=== PATIENT | female | born 1985 | race American Indian/Alaskan Native ===

== ENCOUNTER 2018-03-20 19:55 | Emergency (ER) | payer MEDICARE ==
[2018-03-20 20:18] VITALS: BP 180/111
[2018-03-20 20:53] LABS: Basophils # (Auto) 0.1 K/mm3 (0.0-0.1); Basophils % (Auto) 1.3 % (0.0-1.8); Eosinophils # (Auto) 0.2 K/mm3 (0.0-0.4); Eosinophils % (Auto) 1.9 % (0.0-4.3); Hemoglobin 14.1 gm/dl (10.1-14.3); Lymphocytes # (Auto) 2.5 K/mm3 (1.2-5.4); Lymphocytes % (Auto) 28.1 % (13.4-35.0); Mean Corpuscular HGB Conc 33 % (30-34); Mean Corpuscular Hemoglobin 28 pg (28-32); Mean Corpuscular Volume 84 fl (79-97); Monocytes # (Auto) 0.6 K/mm3 (0.0-0.8); Platelet Count 415 K/mm3 (140-440); Red Blood Count 5.12 M/mm3 (3.65-5.03)
[2018-03-20 21:58] LABS: Bacteria,Urine 4+ /HPF (Negative); Bilirubin,Urine NEG (Negative); Blood,Urine MOD (Negative); Color,Urine Yellow (Yellow); Protein,Urine <15 mg/dL mg/dL (Negative); Urobilinogen,Urine < 2.0 mg/dL (<2.0)
--- NOTE | 2018-03-21 00:40 | Emergency Department Report ---
ED Female HPI - General Chief complaint: Vaginal Bleeding Stated complaint: VAGINAL BLEEDING Time Seen by Provider: 03/21/18 00:36 Source: patient Mode of arrival: Ambulatory Limitations: No Limitations - History of Present Illness Initial comments: 32-year-old -[place] female with a past medical history prediabetes, congestive heart failure, hypertension, DVT and pulmonary embolism. She comes in for vaginal bleeding that she's had for 3 weeks. Patient reports her normal cycle came on in went off within normal weeks she started to have vaginal bleeding. She complains of intermittent cramping. She denies any new medications. Patient denies any chest pain shortness of breathing lightheadedness. MD Complaint: vaginal bleeding -: week(s) (3) Quality: cramping Consistency: intermittent Are you Now?: No Last Menstrual Period: 02/27/18 EDC: 12/04/18 Associated Symptoms: vaginal bleeding. denies: vaginal discharge, nausea/ vomiting, fever/chills - Related Data Sexually active: Yes : 0 Previous Rx's Medication Instructions Recorded Last Taken Type Nitrofurantoin Monohyd/M-Cryst 100 mg PO Q12H 7 Days #14 capsule 03/21/18 Unknown Rx [Macrobid 100 mg Capsule] Allergies Allergy/AdvReac Type Severity Reaction Status Date / Time No Known Allergies Allergy Unverified 03/20/18 20:17 ED Review of Systems ROS: Stated complaint: VAGINAL BLEEDING Other details as noted in HPI ED Past Medical Hx - Past Medical History Hx Hypertension: Yes Hx Heart Attack/AMI: Yes Hx Congestive Heart Failure: Yes Hx Diabetes: (diabetic) Hx Deep Vein Thrombosis: Yes Hx Pulmonary Embolism: Yes - Surgical History Past Surgical History?: No Additional Surgical History: RIGHT ARM/WRIST - Family History Family history: CAD/MN, hypertension - Social History Smoking Status: Never Smoker Substance Use Type: None - Medications Home Medications: Home Medications Medication Instructions Recorded Confirmed Last Taken Type Nitrofurantoin Monohyd/M-Cryst 100 mg PO Q12H 7 Days #14 capsule 03/21/18 Unknown Rx [Macrobid 100 mg Capsule] ED Physical Exam - General Limitations: No Limitations General appearance: alert, in no apparent distress - Head Head exam: Present: atraumatic, normocephalic - Eye Eye exam: Present: EOMI - ENT ENT exam: Present: mucous membranes moist - Neck Neck exam: Present: normal inspection, full ROM - Respiratory Respiratory exam: Present: normal lung sounds bilaterally. Absent: respiratory distress - Cardiovascular Cardiovascular Exam: Present: regular rate, normal rhythm. Absent: systolic murmur, diastolic murmur, rubs, gallop - GI/Abdominal GI/Abdominal exam: Present: soft, normal bowel sounds. Absent: distended, tenderness - Extremities Exam Extremities exam: Present: full ROM. Absent: pedal edema - Neurological Exam Neurological exam: Present: alert, oriented X3 - Psychiatric Psychiatric exam: Present: normal affect, normal mood - Skin Skin exam: Present: warm, dry, intact, normal color. Absent: rash ED Course Vital Signs 03/20/18 20:13 Temperature 97.9 F Pulse Rate 87 Respiratory 20 Rate Blood Pressure 180/111 O2 Sat by Pulse 100 Oximetry ED Medical Decision Making - Lab Data Result diagrams: 03/20/18 20:32 - Medical Decision Making Patient has been evaluated by this provider fast track. Discussed patient because of her medical history of DVTs and pulmonary embolism and congestive heart failure that we will not treat her dysmenorrhea with control pills. Discussed patient to follow up with OB I have listed several referrals for her convenience. Discussed with patient she can take Tylenol or ibuprofen for cramping. CBC CMP within normal limits. Urinalysis shows a little elevation of white count will treat patient with Macrobid 100 mg every 12 hours for 7 days. Patient verbalized understanding Critical care attestation.: If time is entered above; I have spent that time in minutes in the direct care of this critically ill patient, excluding procedure time. ED Disposition Clinical Impression: Dysmenorrhea, unspecified UTI (urinary tract infection) Qualifiers: Urinary tract infection type: acute cystitis Hematuria presence: with hematuria Qualified Code(s): N30.01 - Acute cystitis with hematuria Disposition: TO HOME OR SELFCARE Is pt being admited?: No Does the pt Need Aspirin: No Condition: Stable Instructions: Dysmenorrhea (ED) Additional Instructions: Please continue taking her blood pressure medication as prescribed. Please follow up with [facility] for follow-up and dysmenorrhea. I have listed to for your convenience. They are both in the [facility] in [place].. Prescriptions: Nitrofurantoin Monohyd/M-Cryst [Macrobid 100 mg Capsule] 100 mg PO Q12H 7 Days # 14 capsule Referrals: PRIMARY CAREMD [Primary Care Provider] - 3-5 Days CHUCKIE HUNTER MD [Referring] - 3-5 Days VIOLETTA MEJÍA MD [Referring] - 3-5 Days Forms: Work/School Release Form(ED), Accompanied Note
== END 2018-03-21 00:55 | disposition home or self-care (01) ==
LOC: ED 19:55
DX: N94.6 Dysmenorrhea, unspecified (principal); N39.0 Urinary tract infection, site not specified; I11.0 Hypertensive heart disease with heart failure; Z86.718 Personal history of other venous thrombosis and embolism; Z86.711 Personal history of pulmonary embolism
CPT/HCPCS: 36415; 81001; 84702; 85025; 86850; 86900; 86901; 99283